=== PATIENT | female | born 1985 | race Caucasian/White ===

== ENCOUNTER 2019-06-14 15:05 | Day surgery (SDC) ==
--- NOTE | 2019-06-14 15:39 | PROVIDER DOCUMENTATION ---
This chart was entered by Nohemy Baldwin Scribe, acting as scribe for Kami Rivera MD. HPI-Female /OB/Breast - General Source: reports: patient - History of Present Illness-Female /OB Does patient report she is ?: Yes (ectopic ) Location of complaint: reports: RLQ, LLQ, suprapubic Radiation: reports: none Quality of Pain: reports: aching, cramping Severity in ED: reports: moderate Onset/Duration: reports: this afternoon (1415) Timing: reports: still present Context/Activities at Onset: reports: light activity Associated Symptoms: reports: denies symptoms Similar Symptoms Previously?: No Recently seen or treated by another doctor?: Yes <Kami Rivera - Last Filed: 06/14/19 16:23> <Arturo Cisneros - Last Filed: 06/14/19 17:30> - General Chief Complaint: Abdominal Pain Stated Complaint: ABD. PAIN Time Seen by Provider: 06/14/19 15:13 Allergies/Adverse Reactions: Patient Allergies Allergy/AdvReac Type Severity Reaction Status Date / Time No Known Allergies Allergy Verified 06/14/19 15:12 Home Medications: Home Medication List Medication Instructions Recorded Confirmed Last Taken Type NK [No Home Medications] 06/14/19 06/14/19 Unknown History - History of Present Illness-Female /OB Nature of Presenting Problem: Patient is a 33 year old female who presents with suprapubic, RLQ and LLQ abdominal pain. States pain started at 1415 this afternoon. Reports she was diagnosed with an ectopic Wednesday and received 2 Methotrexate injections. Does not report vaginal bleeding. (Kami Rivera) Review of Systems - Adult - REVIEW OF SYSTEMS - ADULT ROS:: limited per condition Constitutional: reports: no symptoms reported Eyes: reports: no symptoms reported Ears, Nose, Mouth & Throat: reports: no symptoms reported Cardiovascular: reports: no symptoms reported Respiratory: reports: no symptoms reported Gastrointestinal: reports: see HPI, abdominal pain (RLQ, LLQ and suprapubic). denies: nausea, vomiting Genitourinary: reports: no symptoms reported Musculoskeletal: reports: no symptoms reported Integumentary: reports: no symptoms reported Neurological: reports: no symptoms reported Psychiatric: reports: no symptoms reported Endocrine: reports: no symptoms reported Hematologic/Lymphatic: reports: no symptoms reported Allergic/Immunologic: reports: no symptoms reported All Other Systems: Reviewed and Negative <Kami Rivera - Last Filed: 06/14/19 16:23> Past History - Adult - PAST MEDICAL HISTORY-ADULT Review of Records: reports: Old Records Reviewed, Nursing Assessment Review, Medications Reviewed, Social history reviewed & non-contributory. Major Childhood Illnesses: reports: denies history Cardiovascular: reports: denies history Respiratory: reports: denies history Gastrointestinal: reports: denies history Obstetrical/Gynecological: reports: denies history Genitourinary: reports: denies history Musculoskeletal: reports: denies history Neurological: reports: denies history Psychiatric: reports: denies history Endocrine/Immune: reports: denies history Other Conditions: reports: denies history - PRIOR SURGERIES/PROCEDURES Surgical/Procedure History: reports: reviewed, not pertinent - IMMUNIZATION STATUS Childhood Immunizations: See Nurse Assessment Flu Vaccine: See Nurse Assessment - FAMILY HISTORY Family History: reviewed, not pertinent - SOCIAL HISTORY Smoking: denies Substance Use: denies Living Situation: family <Kami Rivera - Last Filed: 06/14/19 16:23> Physical Exam-General - PHYSICAL EXAM-ADULT Initial Vital Signs Reviewed: Yes - CONSTITUTIONAL General Appearance: alert, moderate distress, other (tearful). negative: lethargic - HEAD, EARS, NOSE, MOUTH & THROAT HENMT: normocephalic/atraumatic, moist mucous membranes. negative: angioedema - RESPIRATORY Respiratory: chest non-tender, lungs clear, normal breath sounds. negative: cr ackles, rhonchi - CARDIOVASCULAR Cardiovascular: normal peripheral pulses, tachycardia. negative: systolic murmur - GASTROINTESTINAL (ABDOMEN) Abdominal Exam: normal bowel sounds, soft, tenderness (diffuse. worse in RLQ, LLQ and suprapubic), other (pain was more). negative: distended, rigid - GENITOURINARY Female Genitalia/Pelvic Exam: deferred Rectal Exam: deferred - MUSCULOSKELETAL Extremity: normal inspection. negative: deformity, erythema, swelling - SKIN Integumentary: normal color, normal turgor, warm/dry. negative: diaphoresis, ecchymosis, jaundice - NEUROLOGIC Neurologic: grossly normal. negative: aphasia, facial droop - PSYCHIATRIC Psych/Mental Status: oriented x 3, tearful. negative: normal mood/affect <Kami Riverau - Last Filed: 06/14/19 16:23> Progress - PLAN OF CARE/RESULTS Result Diagrams: 06/14/19 15:30 - CONSULTS/PCP/HOSPITALIST Notification #1 *Consult/PCP/Hospitalist*: Dr. Last Time Discussed: 15:30 Reason/Comments: Dr. Rivera consulted with Dr. Last about patient. Consult Disposition: other (Dr. Last stated have the patient transferred to [facility]) #2 Consult: Dr. Cisneros Time Discussed: 15:33 Reason/Comments: Dr. Rivera consulted with Dr. Cisneros about patient. Consult Disposition: other (Dr. Cisneros states send the patient to the ER) <Cynthia Riverai Christi - Last Filed: 06/14/19 16:23> - PLAN OF CARE/RESULTS Result Diagrams: 06/14/19 15:30 06/14/19 15:30 - REASSESSMENT Reassessment #1 Time Reassessed: 16:45 Status: unchanged (Case discussed with Dr. Rivera at shift change. Patient seen and examined by me. Patient very tender R pelvis with guarding, sudden onset at 1415. Will give IVF and morphine/zofran.) - CONSULTS/PCP/HOSPITALIST Notification #3 Consult: Shala called at 1648 Time Discussed: 16:50 Consult Disposition: Will see in ED <Arturo Cisneros - Last Filed: 06/14/19 17:30> - PLAN OF CARE/RESULTS Progress/Plan/Lab Results: Vital Signs - 8 hr 06/14/19 15:08 06/14/19 16:19 Temperature 98.3 F 98.4 F Pulse Rate 102 H 76 Respiratory Rate 20 18 Blood Pressure 110/79 105/68 O2 Sat by Pulse Oximetry 99 98 Laboratory Results - last 24 hr 06/14/19 06/14/19 06/14/19 15:20 15:20 15:30 WBC RBC Hgb Hct MCV MCH MCHC RDW Std Deviation Plt Count MPV Immature Gran % (Auto) Neut % (Auto) Lymph % (Auto) [place] % (Auto) Eos % (Auto) Baso % (Auto) Immature Gran # (Auto) Neut # (Auto) Lymph # (Auto) [place] # (Auto) Eos # (Auto) Baso # (Auto) PT INR PTT (Actin FS) Sodium Potassium Chloride Carbon Dioxide Anion Gap BUN Creatinine Estimated GFR/1.73 m2 BUN/Creatinine Ratio Glucose Calculated Osmolality Calcium Total Bilirubin AST ALT Alkaline Phosphatase Total Protein Albumin Globulin Albumin/Globulin Ratio Amylase 76 Lipase Ser , Semi-Qnt Urine Source CLEAN CATCH Urine Color YELLOW Urine Clarity CLEAR Urine pH 6.5 Ur Specific [place] 1.005 Urine Protein TRACE A Urine Ketones NEGATIVE Urine Blood 4+ Urine Nitrite NEGATIVE Urine Bilirubin NEGATIVE Urine Urobilinogen NORMAL Urine Microscopic RBC 20-40 A Urine WBC NEGATIVE Urine Microscopic WBC <10 Ur Epithelial Cells >10 A Urine Bacteria 1+ Urine Glucose NEGATIVE Urine Test POSITIVE 06/14/19 06/14/19 06/14/19 15:30 15:30 15:30 WBC 4.84 RBC 4.02 L Hgb 12.4 Hct 35.2 L MCV 87.6 MCH 30.8 MCHC 35.2 RDW Std Deviation 11.8 Plt Count 213 MPV 10.1 Immature Gran % (Auto) 0.2 Neut % (Auto) 47.1 Lymph % (Auto) 39.3 [place] % (Auto) 11.6 H Eos % (Auto) 1.2 Baso % (Auto) 0.6 Immature Gran # (Auto) 0.01 Neut # (Auto) 2.28 Lymph # (Auto) 1.90 [place] # (Auto) 0.56 Eos # (Auto) 0.06 Baso # (Auto) 0.03 PT 12.9 INR 0.93 PTT (Actin FS) 28.5 Sodium 139 Potassium 3.7 Chloride 103 Carbon Dioxide 24 L Anion Gap 12 BUN 9 Creatinine 0.6 Estimated GFR/1.73 m2 > 60 BUN/Creatinine Ratio 15 Glucose 108 H Calculated Osmolality 277 Calcium 9.5 Total Bilirubin 0.20 AST 16 ALT 17 Alkaline Phosphatase 49 Total Protein 7.3 Albumin 4.4 Globulin 3.0 Albumin/Globulin Ratio 2.0 Amylase Lipase 25 Ser , Semi-Qnt Urine Source Urine Color Urine Clarity Urine pH Ur Specific [place] Urine Protein Urine Ketones Urine Blood Urine Nitrite Urine Bilirubin Urine Urobilinogen Urine Microscopic RBC Urine WBC Urine Microscopic WBC Ur Epithelial Cells Urine Bacteria Urine Glucose Urine Test 06/14/19 15:30 WBC RBC Hgb Hct MCV MCH MCHC RDW Std Deviation Plt Count MPV Immature Gran % (Auto) Neut % (Auto) Lymph % (Auto) [place] % (Auto) Eos % (Auto) Baso % (Auto) Immature Gran # (Auto) Neut # (Auto) Lymph # (Auto) [place] # (Auto) Eos # (Auto) Baso # (Auto) PT INR PTT (Actin FS) Sodium Potassium Chloride Carbon Dioxide Anion Gap BUN Creatinine Estimated GFR/1.73 m2 BUN/Creatinine Ratio Glucose Calculated Osmolality Calcium Total Bilirubin AST ALT Alkaline Phosphatase Total Protein Albumin Globulin Albumin/Globulin Ratio Amylase Lipase Ser , Semi-Qnt 2803.0 Urine Source Urine Color Urine Clarity Urine pH Ur Specific [place] Urine Protein Urine Ketones Urine Blood Urine Nitrite Urine Bilirubin Urine Urobilinogen Urine Microscopic RBC Urine WBC Urine Microscopic WBC Ur Epithelial Cells Urine Bacteria Urine Glucose Urine Test Orders Category Date Time Status Saline Loc DIRECTED Care 06/14/19 15:26 Active NPO Diet 06/14/19 15:26 Active US TRANSVAGINAL OB [US] Stat Exams 06/14/19 16:39 Taken AMYLASE [CHEM] Stat Lab 06/14/19 15:30 Completed CBC WITH ELECTRONIC DIFF [HEME] Stat Lab 06/14/19 15:30 Completed COMPREHENSIVE METABOLIC PANEL [CHEM] Stat Lab 06/14/19 15:30 Completed LIPASE [CHEM] Stat Lab 06/14/19 15:30 Completed TEST-URINE [PREG] Stat Lab 06/14/19 15:20 Completed PT [PROTIME WITH INR] [COAG] Stat Lab 06/14/19 15:30 Completed PTT [COAG] Stat Lab 06/14/19 15:30 Completed QUANT TEST Stat Lab 06/14/19 15:30 Completed TYPE & SCREEN [BBK] Stat Lab 06/14/19 16:[address] W/POSS RFLX CULT [URINALYSIS] Stat Lab 06/14/19 15:20 Completed 0.9% Sodium Chloride Inj [Ns] 1,000 ml Med 06/14/19 16:40 Active IV 999 mls/hr Morphine Med 06/14/19 16:44 Discontinued 4 mg IV NOW ONE Ondansetron [Zofran] Med 06/14/19 16:44 Discontinued 4 mg IV NOW ONE Departure - Departure Date of Disposition Decision: 06/14/19 Time of Disposition Decision: 15:37 Certified Medical Emergency: Emergent - Critical Care Note This patient required my direct & personal management of CC.: No <Kami Rivera - Last Filed: 06/14/19 16:23> - Departure Date of Disposition Decision: 06/14/19 Time of Disposition Decision: 16:50 Certified Medical Emergency: Emergent - Critical Care Note This patient required my direct & personal management of CC.: No <Arturo Cisneros - Last Filed: 06/14/19 17:30> - Departure DIAGNOSIS: Ruptured ectopic Ectopic Qualifiers: Location of ectopic : tubal Intrauterine status: unspecified Laterality: right Qualified Code(s): O00.101 - Right tubal without intrauterine Disposition: ADMITTED INPATIENT 09 Condition: Serious Referrals and Follow-Ups: Debora Taylor III, MD [Primary Care Provider] - Attestation - Physician/ JESSICA Attestation Patient care was provided by Advanced Practice Provider:: No The physician spent face to face time with patient:: Yes Advanced Practice Provider documentation review:: Supervising physician onsite and consulted in the evaluation and care of this patient. The physician did have a face to face encounter with the patient. <Kami Rivera - Last Filed: 06/14/19 16:23> - Physician/ JESSICA Attestation Patient care was provided by Advanced Practice Provider:: No The physician spent face to face time with patient:: Yes Advanced Practice Provider documentation review:: Supervising physician onsite and consulted in the evaluation and care of this patient. The physician did have a face to face encounter with the patient. <Arturo Cisneros - Last Filed: 06/14/19 17:30> This chart was documented by the indicated scribe, (Nohemy Baldwin Scribe) and accurately reflects the services I performed and decisions made by Miguel muir Mai Huu, MD, as attested by the provider's signature.
[2019-06-14 15:52] LABS: BILIRUBIN URINE NEGATIVE (NEGATIVE); BLOOD URINE 4+ (NEGATIVE); CLARITY CLEAR (CLEAR); COLOR YELLOW; GLUCOSE URINE NEGATIVE (NEGATIVE); KETONE URINE NEGATIVE (NEGATIVE); LEUKOCYTES URINE NEGATIVE (NEGATIVE); NITRITE URINE NEGATIVE (NEGATIVE); PH URINE 6.5; PROTEIN URINE TRACE mg/dL (NEGATIVE); SP GRAVITY URINE 1.005; UROBILINOGEN URINE NORMAL
[2019-06-14 15:59] LABS: URINE RBC 20-40 /HPF (<10)
[2019-06-14 16:00] LABS: URINE BACTERIA 1+ /HFP; URINE EPITHELIAL CELLS >10 /HPF (<10); URINE SOURCE CLEAN CATCH; URINE WBC <10 /HPF (<10)
[2019-06-14 16:19] LABS: BASO# 0.03 X1000 (0.0-0.2); BASO% 0.6 % (0.0-0.8); EOS# 0.06 X1000 (0.0-0.7); EOS% 1.2 % (0.0-10.0); HEMATOCRIT 35.2 % (37.0-47.0); HEMOGLOBIN 12.4 g/dL (12.0-16.0); IMM GRAN# 0.01 X1000 (0.0-0.04); IMM GRAN% 0.2 % (0.0-0.5); LYMPH% 39.3 % (20.5-51.1); MCH 30.8 PG (27-31); MCHC 35.2 g/dL (33-37); MCV 87.6 FL (81-99); MONO# 0.56 X1000 (0.11-0.59); MONO% 11.6 % (1.7-9.3); MPV 10.1 FL (7.4-10.4); NEUT# 2.28 X1000 (1.4-6.5); NEUT% 47.1 % (42.2-75.2); PLT 213 X1000 (130-400); RBC 4.02 XMIL (4.2-5.4); RDW 11.8 % (11.5-14.5); WBC 4.84 X1000 (4.8-10.8)
[2019-06-14 16:21] LABS: INR 0.93; PROTIME 12.9 Seconds (11.0-16.0); PTT 28.5 Seconds (22.3-41.8)
[2019-06-14 16:28] LABS: AGAP 12; ALBUMIN 4.4 g/dL (3.5-5.0); ALKALINE PHOSPHATASE 49 U/L (32-104); BUN 9 mg/dL (8-22); CALCIUM 9.5 mg/dL (8.8-10.2); CHLORIDE 103 mmol/L (98-107); COSMO 277; CREATININE 0.6 mg/dL (0.5-0.9); ESTIMATED GFR > 60; GLUCOSE 108 mg/dL (70-104); GOT 16 U/L (10-30); GPT 17 U/L (10-36); LIPASE 25 U/L (13-60); POTASSIUM 3.7 mmol/L (3.5-5.1); SODIUM 139 mmol/L (136-145); TCO2 24 mmol/L (25-35); TOTAL PROTEIN 7.3 g/dL (6.3-8.3)
[2019-06-14] MEDS ORDERED: NS 1,000 ML IV ONE (16:40)
[2019-06-14] MEDS ORDERED: ZOFRAN IV ONE ×2 (16:44→19:30)
[2019-06-14] MEDS ORDERED: MORPHINE IV ONE (16:44)
[2019-06-14] MEDS ORDERED: PEPCID PO ONE (17:37)
[2019-06-14] MEDS ORDERED: KEFZOL 1 GM/D5W 1 GM/50 ML IVPB IV ONE (17:37)
[2019-06-14] MEDS ORDERED: XYLOCAINE-MPF 2% ONE (17:39)
[2019-06-14] MEDS ORDERED: QUELICIN (DOSE) ONE (17:39)
[2019-06-14] MEDS ORDERED: ROBINUL ONE ×2 (17:39→18:58)
[2019-06-14] MEDS ORDERED: DIPRIVAN 1% ONE ×2 (17:39→19:40)
[2019-06-14] MEDS ORDERED: REGLAN ONE (17:51)
[2019-06-14] MEDS ORDERED: VERSED ONE (17:52)
--- NOTE | 2019-06-14 17:53 | Diag Imaging Result Doc PS360 ---
EXAM: US TRANSVAGINAL OB - 06/14/2019 HISTORY: , pain, bleeding, failed methotrexate? TECHNIQUE: Attempted obstetrical ultrasound COMPARISON: 06/08/2019 FINDINGS: Several images were obtained using the transabdominal probe. However, there is a large amount of artifact from bowel gas and/or body habitus which substantially limits detail on these. Neither the uterus nor the ovaries are visualized. The technologist indicates that Dr. Crow canceled the exam before transvaginal images were obtained, as the patient apparently was going to the OR with a clinical diagnosis of ectopic . IMPRESSION: Nondiagnostic/canceled ultrasound, as explained above. Electronically signed by Kalpesh Sands 06/14/2019 5:51 PM
[2019-06-14] MEDS ORDERED: KEFZOL 1 GM/D5W 1 GM/50 ML IVPB ONE (18:05)
[2019-06-14] MEDS ORDERED: TORADOL ONE (18:33)
[2019-06-14] MEDS ORDERED: DECADRON ONE (18:33)
[2019-06-14] MEDS ORDERED: ZOFRAN ONE (18:33)
[2019-06-14] MEDS ORDERED: ZEMURON ONE (18:48)
[2019-06-14] MEDS ORDERED: BRIDION ONE (18:58)
[2019-06-14] MEDS ORDERED: NEOSTIGMINE ONE (18:58)
[2019-06-14] MEDS ORDERED: DILAUDID ONE (19:02)
[2019-06-14] MEDS ORDERED: HYDROXYZINE IM PRN (19:28)
[2019-06-14] MEDS ORDERED: TORADOL IM ONE (19:28)
[2019-06-14] MEDS ORDERED: TYLENOL PO PRN (19:28)
[2019-06-14] MEDS ORDERED: PHENERGAN ONE (19:32)
[2019-06-14] MEDS ORDERED: NORCO-5 ONE (19:48)
[2019-06-14] MEDS ORDERED: LR 1,000 ML ONE (19:49)
--- NOTE | 2019-06-14 21:55 | HISTORY AND PHYSICAL ---
HISTORY OF PRESENT ILLNESS: Ms. Coto is a pleasant 33-year-old G2, P1-0-0-1, presenting to the emergency department at [facility] with low abdominal pain and vaginal bleeding. She is status post methotrexate treatment by Dr. Taylor on Wednesday, 06/09. Her quantitatives at that time were 2900; today they are 2800 approximately, with the development of severe right lower quadrant pain. She states she has been unable to eat or drink anything since 1 p.m. today. ALLERGIES: None. Adverse reaction to "a large dose of epinephrine" in the past, but has tolerated anesthesia well in the past. PAST MEDICAL HISTORY: Negative for chronic disease. PAST SURGICAL HISTORY: Status post oral surgery and jaw office fixation in 2008 and 2009 without complications. FAMILY HISTORY: Negative for trouble with anesthesia, otherwise noncontributory. SOCIAL HISTORY: , lives with and 4-year-old child. REVIEW OF SYSTEMS: Negative except for HPI. PHYSICAL EXAMINATION: VITAL SIGNS: She is afebrile. Pulse is 101, blood pressure is stable. GENERAL: She is alert, cooperative and anxious. LUNGS: Clear bilaterally. CARDIOVASCULAR: Tachycardic. ABDOMEN: Soft. Tenderness with rebound in the right lower quadrant. PELVIS: Deferred. EXTREMITIES: Calves are nontender. LABORATORY DATA: Hemoglobin is 12.4, platelets are 213,000. Clotting studies are normal with PT, PTT and INR in normal ranges. CMP is normal with glucose at 108 in a nonfasting specimen. Quantitative beta-hCG 2803. DIAGNOSTIC DATA: Pelvic ultrasound reveals fluid in the right lower quadrant. No intrauterine contents. ASSESSMENT: Ruptured ectopic , likely on the right. She is unable to tolerate the pain or waiting for another methotrexate shot. She has been advised of surgical resolution to be a laparoscopy with extraction of the ectopic, possibly including the right tube or ovary if it happens to be an ovarian ectopic. She has been advised of the possible risks including bleeding, infection, possible damage to healthy organs such as bowel, bladder or large vessels or nerves, and risk of anesthesia. She and her have been allowed to ask questions and all of those questions have been answered satisfactorily. She states understanding and wishes to proceed with the surgical option. PLAN: The plan is to proceed with laparoscopy, possible right salpingectomy, possible salpingostomy, possible laparotomy, possible partial or complete oophorectomy should the ectopic involve enough damage to the ovary. She has also agreed to a blood transfusion should she lose enough blood that would compromise her health or life. cc: Shelbie Last MD
[2019-06-15] MEDS: NORCO-5 PO PRN ×2 (00:42→06:05)
[2019-06-15] MEDS: LR 1,000 ML IV SCH ×2 (02:33→04:20)
[2019-06-15] MEDS ORDERED: FLU VACCINE IM ONE (03:06)
--- NOTE | 2019-06-15 04:17 | OPERATIVE NOTE ---
PROCEDURE DATE: 06/14/2019 PREOPERATIVE DIAGNOSIS: Ruptured ectopic right fallopian tube. POSTOPERATIVE DIAGNOSIS: Ruptured ectopic right fallopian tube with hemoperitoneum. PROCEDURE: Laparoscopic right salpingectomy containing ectopic and removal of hemoperitoneum. SURGEON: Shelbie Last MD TECHNICAL PRODUCT MANAGER: OR assistants ANESTHESIA: General. ANESTHESIOLOGIST: [*] FINDINGS: Right tubal involving the distal half of the fallopian tube, exuding clots that totaled approximately 200 mL hemoperitoneum. Otherwise normal liver, gallbladder, bowel, uterus, both ovaries and left fallopian tube. COMPLICATIONS: None. ESTIMATED BLOOD LOSS: 200 mL. SPECIMENS: Right fallopian tube with ectopic materials sent to Pathology. IV FLUIDS: 2000 mL. Urine output 450 mL. PROCEDURE IN DETAIL: The patient was taken to the operating room where general anesthesia was administered without difficulty. She was sterilely prepped and draped in modified Car position in Car stirrups. Bishop catheter draining clear urine. The uterine manipulator was placed without difficulty. Time-out protocol was followed appropriately. With glove change, a 10 mm vertical infraumbilical incision was made. An open laparoscopy was performed with placement of a 10 mm Optiview trocar under direct visualization without complications was placed. The fascia was tagged with 0 Vicryl and held. Insufflation was accomplished to 15 mmHg of CO2 gas. Intra abdominal viewing was noted to be appropriate. The above findings were noted with bloody field primarily in the pelvis. 5 mm trocars were placed in the right lower quadrant and left lower quadrant under direct visualization. With traction counter traction, the right ectopic was viewed, and some irrigation suction was accomplished to clear the field. The endosalpinx was transected for the length of the fallopian tube, which was thought to be unsalvageable. With the endosalpinx being resected to the isthmus portion of the tube it from the tissues. This was extracted through the infraumbilical port with an EndoCatch bag without complications. This was sent to pathology. Thorough irrigation confirmed hemostasis at all sites. Both ovaries appeared normal. The left fallopian tube appeared normal without disease. The liver and gallbladder were reviewed as well as the remainder of the bowel that was visible. The appendix was not immediately visible nor was it pursued. With most hemoperitoneum cleared, the right and left trocars were removed under direct visualization without complication. As much pneumoperitoneum was released as possible, and Johnny trocar was withdrawn without complications. The fascia was reapproximated with a running Vicryl stitch and found to be intact. The skin incisions on the trocar sites were reapproximated in a subcuticular stitch of 4-0 Monocryl equivalent. The uterine manipulator was removed. Bishop catheter was removed. All needle, lap, and instrument counts were correct x3. The patient is transferred to the recovery room in stable condition. She will be observed overnight and assessed for discharge on 06/15/2019. Since she is a patient of Dr. Kelly, he will be notified for further management. cc: Shelbie Last MD
--- NOTE | 2019-06-15 07:19 | OB/GYN PROGRESS NOTE ---
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: Vital Signs - 24 hr 06/14/19 15:08 06/14/19 16:19 06/14/19 17:52 Temperature 98.3 F 98.4 F 98.4 F Pulse Rate 102 H 76 76 Respiratory Rate 20 18 18 Blood Pressure 110/79 105/68 105/68 Blood Pressure [Left Arm] O2 Sat by Pulse Oximetry 99 98 06/14/19 19:12 06/14/19 19:22 06/14/19 19:32 Temperature 98.0 F Pulse Rate 51 L 51 L 64 Respiratory Rate 12 10 L 16 Blood Pressure 105/68 Blood Pressure [Left Arm] 97/51 80/45 97/55 O2 Sat by Pulse Oximetry 100 100 100 06/14/19 19:42 06/14/19 19:52 06/14/19 20:00 Temperature 98.1 F Pulse Rate 64 57 L 80 Respiratory Rate 16 11 L 18 Blood Pressure 125/68 Blood Pressure [Left Arm] 86/55 96/53 O2 Sat by Pulse Oximetry 100 99 100 06/14/19 20:02 06/14/19 20:12 06/14/19 20:22 Temperature Pulse Rate 71 66 70 Respiratory Rate 14 16 16 Blood Pressure Blood Pressure [Left Arm] 110/64 111/65 114/60 O2 Sat by Pulse Oximetry 100 100 100 06/14/19 21:59 06/14/19 23:13 06/15/19 04:00 Temperature 97.8 F 98.2 F Pulse Rate 78 69 67 Respiratory Rate 18 18 Blood Pressure 125/68 95/50 120/60 Blood Pressure [Left Arm] O2 Sat by Pulse Oximetry 100 100 97 Laboratory Results - last 24 hr 06/14/19 06/14/19 06/14/19 15:20 15:20 15:30 WBC RBC Hgb Hct MCV MCH MCHC RDW Std Deviation Plt Count MPV Immature Gran % (Auto) Neut % (Auto) Lymph % (Auto) [place] % (Auto) Eos % (Auto) Baso % (Auto) Immature Gran # (Auto) Neut # (Auto) Lymph # (Auto) [place] # (Auto) Eos # (Auto) Baso # (Auto) PT INR PTT ([place] FS) Sodium Potassium Chloride Carbon Dioxide Anion Gap BUN Creatinine Estimated GFR/1.73 m2 BUN/Creatinine Ratio Glucose Calculated Osmolality Calcium Total Bilirubin AST ALT Alkaline Phosphatase Total Protein Albumin Globulin Albumin/Globulin Ratio Amylase 76 Lipase Ser , Semi-Qnt Urine Source CLEAN CATCH Urine Color YELLOW Urine Clarity CLEAR Urine pH 6.5 Ur Specific [place] 1.005 Urine Protein TRACE A Urine Ketones NEGATIVE Urine Blood 4+ Urine Nitrite NEGATIVE Urine Bilirubin NEGATIVE Urine Urobilinogen NORMAL Urine Microscopic RBC 20-40 A Urine WBC NEGATIVE Urine Microscopic WBC <10 Ur Epithelial Cells >10 A Urine Bacteria 1+ Urine Glucose NEGATIVE Urine Test POSITIVE Blood Type Antibody Screen 06/14/19 06/14/19 06/14/19 15:30 15:30 15:30 WBC 4.84 RBC 4.02 L Hgb 12.4 Hct 35.2 L MCV 87.6 MCH 30.8 MCHC 35.2 RDW Std Deviation 11.8 Plt Count 213 MPV 10.1 Immature Gran % (Auto) 0.2 Neut % (Auto) 47.1 Lymph % (Auto) 39.3 [place] % (Auto) 11.6 H Eos % (Auto) 1.2 Baso % (Auto) 0.6 Immature Gran # (Auto) 0.01 Neut # (Auto) 2.28 Lymph # (Auto) 1.90 [place] # (Auto) 0.56 Eos # (Auto) 0.06 Baso # (Auto) 0.03 PT 12.9 INR 0.93 PTT ([place] FS) 28.5 Sodium 139 Potassium 3.7 Chloride 103 Carbon Dioxide 24 L Anion Gap 12 BUN 9 Creatinine 0.6 Estimated GFR/1.73 m2 > 60 BUN/Creatinine Ratio 15 Glucose 108 H Calculated Osmolality 277 Calcium 9.5 Total Bilirubin 0.20 AST 16 ALT 17 Alkaline Phosphatase 49 Total Protein 7.3 Albumin 4.4 Globulin 3.0 Albumin/Globulin Ratio 2.0 Amylase Lipase 25 Ser , Semi-Qnt Urine Source Urine Color Urine Clarity Urine pH Ur Specific [place] Urine Protein Urine Ketones Urine Blood Urine Nitrite Urine Bilirubin Urine Urobilinogen Urine Microscopic RBC Urine WBC Urine Microscopic WBC Ur Epithelial Cells Urine Bacteria Urine Glucose Urine Test Blood Type Antibody Screen 06/14/19 06/14/19 15:30 18:25 WBC RBC Hgb Hct MCV MCH MCHC RDW Std Deviation Plt Count MPV Immature Gran % (Auto) Neut % (Auto) Lymph % (Auto) [place] % (Auto) Eos % (Auto) Baso % (Auto) Immature Gran # (Auto) Neut # (Auto) Lymph # (Auto) [place] # (Auto) Eos # (Auto) Baso # (Auto) PT INR PTT ([place] FS) Sodium Potassium Chloride Carbon Dioxide Anion Gap BUN Creatinine Estimated GFR/1.73 m2 BUN/Creatinine Ratio Glucose Calculated Osmolality Calcium Total Bilirubin AST ALT Alkaline Phosphatase Total Protein Albumin Globulin Albumin/Globulin Ratio Amylase Lipase Ser , Semi-Qnt 2803.0 Urine Source Urine Color Urine Clarity Urine pH Ur Specific [place] Urine Protein Urine Ketones Urine Blood Urine Nitrite Urine Bilirubin Urine Urobilinogen Urine Microscopic RBC Urine WBC Urine Microscopic WBC Ur Epithelial Cells Urine Bacteria Urine Glucose Urine Test Blood Type O POSITIVE Antibody Screen NEGATIVE 33yo POD#1 s/p Laparoscopic R salpingectomy for R ruptured ectopic Patient seen and examined. Doing well, pain controlled. She is tolerating regular diet. Denies nausea/vomiting. She is not passing flatus yet. She notes a small amount of vaginal bleeding. She is ambulating to the bathroom and voiding without difficulty. She denies any dizziness/lightheadedness with walking. Blood Type O+/- Physical Exam-General - PHYSICAL EXAM-ADULT Initial Vital Signs Reviewed: Yes - CONSTITUTIONAL General Appearance: appears well, alert, no apparent distress - HEAD, EARS, NOSE, MOUTH & THROAT HENMT: normocephalic/atraumatic - RESPIRATORY Respiratory: lungs clear, normal breath sounds - CARDIOVASCULAR Cardiovascular: regular rate, rhythm, no edema - GASTROINTESTINAL (ABDOMEN) Abdominal Exam: soft, other (ATTP, no rebound/guarding. 3 Small laparoscopic incisions C/D/I.) - MUSCULOSKELETAL Extremity: normal range of motion, non-tender - NEUROLOGIC Neurologic: grossly normal - PSYCHIATRIC Psych/Mental Status: normal mood/affect Assessment/Plan - Assessment/Plan Assessment: 33 yo POD#1 s/p Laparoscopic R salpingectomy for R ruptured ectopic 1. HD stable, VS WNL, H/H pending this AM 2. Routine post-op care, pain control 3. Encourage ambulation 4. D/C home today to follow-up in 1 week 5. Discussed pain control at home, preventing constipation
[2019-06-15 07:52] VITALS: BP 95/65
[2019-06-15 08:47] LABS: BASO# 0.02 X1000 (0.0-0.2); BASO% 0.4 % (0.0-0.8); EOS# 0.01 X1000 (0.0-0.7); EOS% 0.2 % (0.0-10.0); HEMOGLOBIN 10.5 g/dL (12.0-16.0); LYMPH# 1.52 X1000 (1.2-3.4); LYMPH% 27.2 % (20.5-51.1); MCH 30.3 PG (27-31); MCHC 33.9 g/dL (33-37); MCV 89.3 FL (81-99); MONO# 0.63 X1000 (0.11-0.59); MONO% 11.3 % (1.7-9.3); MPV 10.2 FL (7.4-10.4); NEUT% 60.9 % (42.2-75.2); PLT 183 X1000 (130-400); RBC 3.47 XMIL (4.2-5.4); RDW 12.1 % (11.5-14.5); WBC 5.58 X1000 (4.8-10.8)
[2019-06-15] MEDS ORDERED: PERIDEX MT SCH (09:00)
== END 2019-06-15 09:08 | disposition home or self-care (01) ==
LOC: P.ED 15:05 → ED 15:05 → 4N 15:05 → OPS 20:44
PROVIDERS: ATTEND Obstetrics & Gynecology